=== PATIENT | female | born 1980 | race Caucasian/White ===

== ENCOUNTER 2018-10-17 14:03 | Emergency (ER) | payer OTHER ==
[2018-10-17 14:09] VITALS: BP 125/68; PULSE 77; TEMP 98.3; BMI 37.2
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
[2018-10-17 15:45] LABS: EPI CELLS 1.4 /HPF (0-5/HPF); HCG,QUALITATIVE URINE Negative; HYALINE CASTS 2 /lpf (0-8); PH,URINE 6.5 (5.0-8.0); URINE APPEARANCE CLEAR; URINE BACTERIA 54.2 /hpf (NEGATIVE); URINE BILIRUBIN NEGATIVE (NEGATIVE); URINE COLOR YELLOW; URINE GLUCOSE (UA) NEGATIVE (NEGATIVE); URINE KETONE TRACE (NEGATIVE); URINE LEUK ESTERASE 1+ (NEGATIVE); URINE NITRITE NEGATIVE (NEGATIVE); URINE PROTEIN NEGATIVE (NEGATIVE); URINE RBC 2 /hpf (0-4); URINE WBC 2 /hpf (0-5)
== END 2018-10-17 16:00 | disposition home or self-care (01) ==
LOC: JERFT 14:03
DX: M54.5 Low back pain (principal)
CPT/HCPCS: 81003; 82962; 84703; 87086; 99281-25

== ENCOUNTER 2018-11-13 19:32 | Emergency (ER) | payer OTHER | END 2018-11-13 20:40 | disposition home or self-care (01) | LOC: JERFT 19:32 ==

== ENCOUNTER 2022-03-01 21:02 | Emergency (ER) | payer OTHER ==
[2022-03-01 21:15] VITALS: BP 112/70; PULSE 84; RESP 18; TEMP 98; BMI 33.6
[2022-03-01] MEDS ORDERED: FLUCONAZOLE 150 MG TABLET PO ONE ×2 (22:55→22:57)
== END 2022-03-01 23:45 | disposition home or self-care (01) ==
LOC: JERFT 21:02
DX: N76.89 Other specified inflammation of vagina and vulva (principal)
CPT/HCPCS: 36415; 87070; 87205; 87491; 87591; 87661; 99283-25